=== PATIENT | male | born 2000 | race Caucasian/White ===

== ENCOUNTER 2023-03-04 15:38 | Emergency (ER) | payer MEDICAID ==
[~2023-03-04] VITALS: Ht 172.7 cm; Wt 90.0 kg
[2023-03-04 15:43] VITALS: O2SAT 99
[2023-03-04] MEDS ORDERED: ACETAMINOPHEN 325MG TABLET PO ONE (16:45)
[2023-03-04] MEDS ORDERED: ONDANSETRON 4MG ODT PO ONE (16:45)
[2023-03-04] MEDS ORDERED: METH-653 MT (16:49)
[2023-03-04 18:16] VITALS: BP 112/67; PULSE 83; RESP 16; TEMP 98.7
== END 2023-03-04 18:18 | disposition home or self-care (01) ==
LOC: ER 15:38
DX: M54.2 Cervicalgia (principal); R51.9 Headache, unspecified; R11.0 Nausea; V49.9XXA Car occupant (driver) (passenger) injured in unspecified traffic accident, initial encounter; Y93.89 Activity, other specified; Y92.89 Other specified places as the place of occurrence of the external cause; Y99.8 Other external cause status
CPT/HCPCS: 99283; Q0162